=== PATIENT | male | born 1990 | race Caucasian/White ===

== ENCOUNTER 2016-05-01 13:24 | Emergency (ER) | payer BC ==
[~2016-05-01] VITALS: Ht 170.2 cm; Wt 69.4 kg
[~2016-05-01 13:24] MED LIST: CLINDAMYCIN HC300 MG ORAL; IBUPROFEN600 MG ORAL; TRAZODONE HCL150 MG ORAL; ZOLOFT100 MG ORAL
[2016-05-01 13:37] VITALS: BP 119/72
[2016-05-01] MEDS ORDERED: FLONASE ALLERG9.9 ML NS (13:57)
[2016-05-01] MEDS ORDERED: LORATADINE10 M2 PO (13:57)
[2016-05-01 14:08] VITALS: BP 115/79
--- NOTE | 2016-05-01 14:14 | Emergency Room Report ---
History of Present Illness General Chief Complaint: Upper Respiratory Illness Source: Patient Present Illness HPI 25 y/o M c/o cough x 4 days. Assoc sxs include nasal congestion, rhinorrhea w/ post nasal drip, feeling feverish, and cough. States have taken any medication and that the illness was self limiting and that he feels better today but still has nasal congestion that persists. States he is mostly here for a work note as he missed the last 2 days of work. Patient takes trazadone for insomnia and SSRI for depression with good control w/o AE. Denies any contributory chronic medical illness, n/v, diarrhea, headache, CP, SOB, or rashes. Allergies: Coded Allergies: No Known Allergies (Unverified , 11/23/15) Patient History Past Medical History: see triage record Pertinent Family History: none Immunizations: UTD Reviewed Nursing Documentation: PMH: Agreed, PSxH: Agreed Nursing Documentation-PMH Past Medical History: No Stated History Review of Systems All Other Systems: negative except mentioned in HPI Physical Exam Vital Signs Date Time Temp Pulse Resp B/P Pulse Ox O2 Delivery O2 Flow Rate FiO2 05/01/16 13:33 98.4 94 16 119/72 98 Room Air Sp02 EP Interpretation: reviewed, normal General Appearance: no apparent distress, alert, GCS 15, non-toxic Head: normocephalic, atraumatic Eyes: bilateral eye PERRL, bilateral eye normal inspection ENT: hearing grossly normal, normal pharynx, no angioedema, normal voice, TMs + canals normal, uvula midline, nasal congestion, pharyngeal erythema - w/ normal tonsils and some post nasal drip Neck: full range of motion, supple/symm/no masses Respiratory: chest non-tender, lungs clear, normal breath sounds, speaking full sentences Cardiovascular #1: regular rate, rhythm, no edema, no murmur, no rub Musculoskeletal: back normal, gait/station normal, normal range of motion, non- tender Neurologic: alert, oriented x3, responsive, motor strength/tone normal, sensory intact, speech normal Psychiatric: judgement/insight normal, memory normal, mood/affect normal, no suicidal/homicidal ideation Reflexes: 3+ bicep (R), 3+ bicep (L), 3+ tricep (R), 3+ tricep (L), 3+ knee (R) , 3+ knee (L) Skin: normal color, no rash, warm/dry, well hydrated Lymphatic: no adenopathy Medical Decision Making PA Attestation Dr. Zepeda is my supervising physician with whom patient management has been discussed with. Diagnostic Impression: Primary Impression: URI with cough and congestion ER Course Pt. presents to the ED c/o cough x 4-5 days Ddx considered but are not limited to pneumonia, bronchitis, viral syndrome, strep pharyngitis Vital signs: are WNL, pt. is afebrile H&PE are most consistent with Viral URI with cough and congestion ORDERS: none required at this time, the diagnosis is clinical ED INTERVENTIONS: None required at this time. DISCHARGE: At this time pt. is stable for d/c to home. Will provide printed patient care instructions, and any necessary prescriptions. Care plan and follow up instructions have been discussed with the patient prior to discharge. Last Vital Signs Date Time Temp Pulse Resp B/P Pulse Ox O2 Delivery O2 Flow Rate FiO2 05/01/16 13:37 98.4 94 16 119/72 98 Room Air Status: unchanged Disposition: HOME, SELF-CARE Condition: Stable Scripts Fluticasone Propionate (Flonase Allergy Relief) 9.9 Ml Olin.susp 2 SPRAYS NS DAILY for 7 Days, #10 ML Prov: JORDANA RENNER.ADarron 05/01/16 Loratadine (LORATADINE) 10 Mg Tablet 10 MG PO DAILY for 14 Days, #14 TAB Prov: JORDANA RENNER.A. 05/01/16 Departure Forms: Return to Work Return to Work in (Days): 1 Return to Work Date: May 02, 2016 JORDANA RENNER May 01, 2016 14:14
[2016-07-19] MEDS ORDERED: SERTRALINE HCL100 MG PO (10:08)
[2016-07-19] MEDS ORDERED: TRAZODONE HCL150 MG ORAL (10:08)
== END 2016-05-01 14:09 | disposition home or self-care (01) ==
LOC: EMR 14:00
DX: J06.9 Acute upper respiratory infection, unspecified (principal)
CPT/HCPCS: 99282

== ENCOUNTER → 2016-07-20 | Day surgery (SDC) | payer BC ==
[2016-07-20] VITALS (10 sets, daily range): BP systolic 91–133; BP diastolic 60–82
[~2016-07-20] VITALS: Ht 170.2 cm; Wt 72.6 kg
[~2016-07-20] MED LIST changes: +DiphenhydrAMINE 50mg/ml Inj IVP PRN; +FLONASE ALLERG9.9 ML NS; +Ketorolac 30mg Inj IV PRN; +Ketorolac 30mg Inj ONE; +LORATADINE10 M2 PO; +LR 1000ml 1,000 ML IVLG SCH; +LR 1000ml ONE; +Lidocaine 1% 10mg/ml/Epi 0.005mg/ml 30ml vial INJ ONE; +Metoclopramide 10mg/2ml Inj IVP PRN; +Midazolam 2mg/2ml Inj IVP PRN; +Midazolam 2mg/2ml Inj ONE; +NS Irrig 1000ml ONE; +Propofol 10mg/ml 20ml IV ONE; +SERTRALINE HCL100 MG PO; +Sterile Water Irrig 1000ml IRRIG ONE
--- NOTE | 2016-07-20 07:23 | Pre-Procedure Note/Attestation ---
Pre-Procedure Note/Attestation Complete Prior to Procedure Planned Procedure: left Procedure Narrative: left supraclavicular lymph node biopsy Indications for Procedure Pre-Operative Diagnosis: left neck adenopathy Attestation I attest that I discussed the nature of the procedure; its benefits; risks and complications; and alternatives (and the risks and benefits of such alternatives ), prior to the procedure, with the patient (or the patient's legal client services representative). I attest that, if there was a reasonable possibility of needing a blood transfusion, the patient (or the patient's legal client services representative) was given the [facility] standardized written summary, pursuant to the Dmitri Shobha Blood Safety Act ([place] Health and Safety Code # 1645, as amended). I attest that I re-evaluated the patient just prior to the surgery and that there has been no change in the patient's H&P, except as documented below: REA DE OLIVEIRA Jul 20, 2016 07:23
--- NOTE | 2016-07-20 09:21 | Anethesia Preoperative Eval ---
Anesthesia Pre-op PMH/ROS General Date of Evaluation: Jul 20, 2016 Time of Evaluation: 08:42 Anesthesiologist: Gale ASA Score: ASA 2 Mallampati Score Class I : Soft palate, uvula, fauces, pillars visible Class II: Soft palate, uvula, fauces visible Class III: Soft palate, base of uvula visible Class IV: Only hard plate visible Mallampati Classification: Class II Surgeon: Adalberto Diagnosis: Lymphadenopathy Surgical Procedure: Excisional Bx of L supraclavicular l/n Anesthesia History: none Social History: drug use Family History: no anesthesia problems Allergies: Coded Allergies: No Known Allergies (Unverified , 11/23/15) Past Medical History Cardiovascular: Denies: CAD, HTN, NE, arrhythmia, other, valve dz Pulmonary: Denies: COPD, NEENA, asthma, other Gastrointestinal/Genitourinary: Reports: GERD, Denies: CRI, ESRD, other Neurologic/Psychiatric: Reports: depression/anxiety, Denies: CVA, TIA, dementia, other Endocrine: Denies: DM, hypothyroidism, other, steroids HEENT: Denies: [place] (L), [place] (R), cataract (L), cataract (R), glaucoma, other Hematology/Immune: Denies: DVT, anemia, bleeding disorder, other Musculoskeletal/Integumentary: Denies: DDD, DJD, OA, RA, edema, other PMH Narrative: as above PSxH Narrative: None Anesthesia Pre-op Phys. Exam Physician Exam Last Vital Signs Date Time Temp Pulse Resp B/P Pulse Ox O2 Delivery O2 Flow Rate FiO2 07/20/16 08:20 96.3 83 18 133/81 99 Room Air Constitutional: NAD Neurologic: CN 2-12 intact Cardiovascular: RRR, no M/R/G Respiratory: CTA Gastrointestinal: S/NT/ND Airway Exam Mallampati Score: Class II MO: full Neck: flexible ROM: full Teeth: intact Dentures: no lower, no upper Anesthesia Pre-op A/P Labs see chart Risk Assessment & Plan Assessment: ASA 2 Plan: GA with LMA Status Change Before Surgery: No Pre-Antibiotics Drug: Ancef 1gr Given Within 1 Hr of Incision: Yes Time Given: 09:05 CODY BIRD M.D. Jul 20, 2016 09:21
--- NOTE | 2016-07-20 09:30 | Brief Operative Note ---
Immediate Post Operative Note Operative Note Pre-op Diagnosis: left neck adenopathy Procedure: left supraclavicular lymph node biopsy Post-op Diagnosis: same as pre-op - R/O lymphoma Surgeon: gerardo Anesthesiologist: alize Anesthesia: MAC Specimen: yes Complications: none Condition: stable Estimated Blood Loss: minimal Drains: none Implant(s) used?: No REA DE OLIVEIRA Jul 20, 2016 09:30
--- NOTE | 2016-07-20 09:50 | Immediate Post-Op Evaluation ---
Immediate Post-Op Evalulation Immediate Post-Op Evalulation Procedure: Excisional Bx of L supraclav. L/N Date of Evaluation: Jul 20, 2016 Time of Evaluation: 09:49 IV Fluids: 700 Blood Products: none Estimated Blood Loss: min Urinary Output: none Blood Pressure Systolic: 113 Blood Pressure Diastolic: 64 Pulse Rate: 78 Respiratory Rate: 20 O2 Sat by Pulse Oximetry: 99 Temperature (Fahrenheit): 97.5 Pain Score (1-10): 2 Nausea: No Vomiting: No Complications none Patient Status: reacts, patent, none Hydration Status: adequate CODY BIRD M.D. Jul 20, 2016 09:50
--- NOTE | 2016-07-22 01:18 | Operative Note - Dictated ---
DATE OF OPERATION: 07/20/2016 SURGEON: Fabio Glover M.D. PATTERNMAKER PRESSURE CAST: None. ANESTHESIOLOGIST: Dontae Beasley M.D. ANESTHESIA: LMA by general. PREOPERATIVE DIAGNOSIS: Left neck supraclavicular adenopathy. POSTOPERATIVE DIAGNOSIS: Left neck supraclavicular adenopathy. NAME OF OPERATION: Left neck lymph node biopsy. FINDINGS AND INDICATIONS: The patient is a 25-year-old male, who has a history of some increased size lymph nodes in the left neck with some discomfort. His attending physician examined and gave him some antibiotics and they did not resolve. A CAT scan does not show any real suspicious adenopathy, but the patient pulls his chest out and rolled his shoulders back, one can feel significant adenopathy in the supraclavicular region. Because of worry about possible lymphoma, we went ahead and discussed the biopsy, which was done uneventfully as described. PROCEDURE: With the patient lying in the supine position on the operating table, under light general anesthesia with the left neck area prepped and draped in usual sterile fashion with Betadine, a transverse incision was carried out over the area, subcutaneous tissues divided just above the clavicle, and careful dissection was undertaken platysma into the fat pad in the supraclavicular area and several small lymph nodes removed along with the fat-pad. Hemoclips were used for hemostasis. The area was irrigated. Hemostasis adequate. The edges of the muscles were approximated with interrupted 3-0 Vicryl sutures. Subcutaneous tissues with 3-0 Vicryl suture. The skin with 4-0 Vicryl subcuticular sutures and Steri-Strips. Marcaine 0.5% with epinephrine 15 mL was injected for long-acting local anesthetic. The patient tolerated the procedure well. Estimated blood loss less than 5 mL. Sponge and needle counts were correct. He went to the recovery room in stable condition. Fabio Glover M.D. DR: LUL JOB#: [id number] CC:
[2016-07-22 08:48] VITALS: BP 145/74
--- NOTE | 2016-07-22 08:48 | 48 Hour Post Anesthesia Eval ---
Post Anesthesia Evaluation Procedure: Excisional Bx of L supraclav. L/N Date of Evaluation: Jul 20, 2016 Time of Evaluation: 11:15 Blood Pressure Systolic: 145 0: 74 Pulse Rate: 82 Respiratory Rate: 20 Temperature (Fahrenheit): 97.3 O2 Sat by Pulse Oximetry: 99 Airway: patent Nausea: No Vomiting: No Pain Intensity: 3 Hydration Status: adequate Cardiopulmonary Status: stable Mental Status/LOC: patient returned to baseline Follow-up Care/Observations: n/a Post-Anesthesia Complications: none Follow-up care needed: ready to discharge CODY BIRD M.D. Jul 22, 2016 08:48
== END | disposition home or self-care (01) ==
LOC: SUR 07:40
DX: R59.0 Localized enlarged lymph nodes (principal); K21.9 Gastro-esophageal reflux disease without esophagitis; F32.9 Major depressive disorder, single episode, unspecified; F41.0 Panic disorder [episodic paroxysmal anxiety]; F17.210 Nicotine dependence, cigarettes, uncomplicated
CPT/HCPCS: 38510; J0690; J1885; J2250; J2405; J2704; J7120; 94003; 94150